=== PATIENT | female | born 1975 | race Caucasian/White ===

== ENCOUNTER 2020-12-19 19:45 | Emergency (ER) | payer OTHER ==
[~2020-12-19] VITALS: Ht 167.6 cm; Wt 77.2 kg
[2020-12-19 19:47] VITALS: BP 169/90
[2020-12-19] MEDS ORDERED: CYCL-1 PO (20:40)
[2020-12-19] MEDS ORDERED: ketorolac trometh. 30mg/ml inj. IM ONE (20:40)
== END 2020-12-19 20:59 | disposition home or self-care (01) ==
LOC: ER 19:46
DX: S39.012A Strain of muscle, fascia and tendon of lower back, initial encounter (principal); Z79.899 Other long term (current) drug therapy; W19.XXXA Unspecified fall, initial encounter; Y93.89 Activity, other specified; Y92.091 Bathroom in other non-institutional residence as the place of occurrence of the external cause; Y99.8 Other external cause status
CPT/HCPCS: 72100; 96372; 99283; J1885